=== PATIENT | female | born 1960 | race Two or more races ===

== ENCOUNTER 2018-12-30 11:47 | Emergency (ER) | payer OTHER ==
[~2018-12-30] VITALS: Ht 157.5 cm; Wt 70.9 kg
[~2018-12-30 11:47] MED LIST: ACYC400T2 PO; CYCL10TA7 PO; IBUP-1561 PO; IBUP800T48 PO; METH750T93 PO; NAPR-985 PO; PRED20TA PO; TRAM50TA2 PO
[2018-12-30 12:03] VITALS: BP 137/70; PULSE 96; RESP 18; Ht 157.5 cm; Wt 70.9 kg
[2018-12-30] MEDS ORDERED: KETOROLAC 30 MG INJ IM STA (13:44)
[2018-12-30] MEDS ORDERED: METHOCARBAMOL 750 MG TAB PO ONE (14:00)
[2018-12-30] MEDS ORDERED: predniSONE 20 MG TAB PO ONE (14:00)
== END 2018-12-30 14:13 | disposition home or self-care (01) ==
LOC: FTE 11:47
DX: M62.838 Other muscle spasm (principal); I10 Essential (primary) hypertension; E03.9 Hypothyroidism, unspecified
CPT/HCPCS: 96372; J1885; J7512; Z7502; Z7610